=== PATIENT | male | born 1970 | race African-American/Black ===

== ENCOUNTER 2017-12-24 21:19 | Emergency (ER) | payer OTHER ==
[~2017-12-24] VITALS: Ht 165.1 cm; Wt 105.3 kg
[~2017-12-24 21:19] MED LIST: ANTIVERT25 MG PO; CLARITIN10 MG PO; NO HOME MEDS
[2017-12-24 21:39] LABS: HEMATOCRIT 39.3 % (38.0-50.0); HEMOGLOBIN 13.5 G/DL (12.5-16.6); MCH 29.6 PG (29.0-34.0); MCHC 34.4 G/DL (30.0-36.0); MCV 86.2 FL (86-99); PLATELET COUNT 216 K/uL (156-360); RBC DIS.WIDTH-CV 11.7 % (11.8-14.6); RBC DIS.WIDTH-SD 37.1 % (39-53); RED BLOOD COUNT 4.56 M/uL (4.00-5.50); WHITE BLOOD COUNT 8.1 K/uL (4.1-10.2)
[2017-12-24 21:57] LABS: CHLORIDE 104 mEq/L (99-109); POTASSIUM 3.5 mEq/L (3.7-5.4); SODIUM 142 mEq/L (136-147)
[2017-12-24 21:59] LABS: GLUCOSE 93 mg/dL (70-99)
[2017-12-24 22:03] LABS: CREATININE 1.4 mg/dL (0.6-1.3); GFR ESTIMATE (CALCULATED) > 59 mL/min/ (58.99-99999)
[2017-12-24 22:04] LABS: UREA NITROGEN (BUN) 17 mg/dL (9-23)
[2017-12-24 22:05] LABS: TROP-I INTERPRETATION NEGATIVE; TROPONIN-I < 0.01 ng/mL (0.0-0.30)
[2017-12-24] MEDS ORDERED: VENTOLIN HFA18 GM IH (23:57)
[2017-12-24] MEDS ORDERED: PROVENTIL,2.5 MG/3 M IH (23:57)
[2017-12-25 00:06] VITALS: BP 127/78
== END 2017-12-25 00:10 | disposition home or self-care (01) ==
LOC: EME 21:19
DX: J20.9 Acute bronchitis, unspecified (principal); G47.30 Sleep apnea, unspecified; I10 Essential (primary) hypertension
CPT/HCPCS: 71046; 80048; 84484; 85027; 93005; 94640; 99281; 99283